=== PATIENT | female | born 1935 | race Caucasian/White ===

== ENCOUNTER 2017-06-18 09:59 | Emergency (ER) | payer MEDICARE, BC ==
--- NOTE | 2017-06-18 10:29 | Emergency Department Record ---
History of Present Illness - General Chief Complaint: Dizziness Stated Complaint: DIZZY Time Seen by Provider: 06/18/17 10:28 Source: Patient Mode of Arrival: Wheelchair Limitations: No limitations - History of Present Illness Initial Comments: The patient is here due to dizziness, weakness and mild dyspnea this AM. She woke up with it this AM. There is no hx of Cp, chest discomfort, palpitations or any recent illnesses. The patient does have a hx of chronic lung dz and was at [facility] for it yesterday. MD Complaint: Dizziness Onset/Timin -: Hour(s) Timing: Awoke with symptoms Description: Off-balance History of Same: No History of Trauma: No Severity: Moderate Improves With: Nothing Worsens With: Nothing Associated Symptoms: Shortness of breath, Weakness - Related Data Home Medications Medication Instructions Recorded Confirmed Last Taken Albuterol Sulfate [Ventolin Hfa] 1 puff IH DAILY 06/18/17 06/18/17 Unknown Allergies Allergy/AdvReac Type Severity Reaction Status Date / Time No Known Drug Allergies Allergy Verified 06/18/17 10:21 Travel Screening - Travel/Exposure Within Last 30 Days Have you traveled within the last 30 days?: No Review of Systems Constitutional: Denies: Chills, Fever Eyes: Denies: Eye discharge ENT: Denies: Congestion Respiratory: Reports: Cough (chronic.). Denies: Dyspnea Cardiovascular: Denies: Arrhythmia, Chest pain Endocrine: Reports: Fatigue Gastrointestinal: Denies: Abdominal pain Genitourinary: Denies: Dysuria Musculoskeletal: Denies: Arthralgia Past Medical History - SOCIAL HISTORY Smoking Status: Former smoker Alcohol Use: None Drug Use: None - RESPIRATORY Hx Respiratory Disorders: Yes Comment:: collapsed lung/brochial disease - CARDIOVASCULAR Hx Cardio Disorders: No - NEURO Hx Neuro Disorders: No - GI Hx GI Disorders: No - Hx Genitourinary Disorders: No - ENDOCRINE Hx Endocrine Disorders: No - MUSCULOSKELETAL Hx Musculoskeletal Disorders: No - PSYCH Hx Psych Problems: No - HEMATOLOGY/ONCOLOGY Hx Hematology/Oncology Disorders: No Family Medical History Any Significant Family History?: No Physical Exam - General General Appearance: Alert, Oriented x3, Cooperative, No acute distress - Head Head exam: Atraumatic, Normocephalic, Normal inspection - Eye Eye exam: Normal appearance, PERRL - Neck Neck exam: Normal inspection, Full ROM. negative: Tenderness - Respiratory Respiratory exam: Rhonchi (mildly.). negative: Normal lung sounds bilaterally - Cardiovascular Cardiovascular Exam: Irregular rhythm, Tachycardia. negative: Regular rate, Normal rhythm - GI/Abdominal GI/Abdominal exam: Soft, Normal bowel sounds. negative: Tenderness - Extremities Extremities exam: Normal inspection, Full ROM, Normal capillary refill. negative: Tenderness - Neurological Neurological exam: Alert. negative: Motor sensory deficit Course Vital Signs 06/18/17 06/18/17 10:11 10:24 Temperature 98.0 F Pulse Rate 170 H Respiratory 24 32 H Rate Blood Pressure 103/70 Pulse Ox 99 - Reevaluation(s) Reevaluation #1: The patient is very stable at this time with a HR of 160 in Afib. Due to her BP being low chronically we will give her some IVF and an amp of Calcium gluconate. We then will start the Cardizem. 06/18/17 10:45 Reevaluation #2: The patient is doing a lot better. Her BP is stable and HR 125 after the first Cardizem bolus. 06/18/17 11:08 Reevaluation #3: The patient is doing well at this time. Her BP is stable and her HR improving. I did discuss the case with Dr. Sam at [facility] [place] and he agrees with the transfer but would like her admitted to D-service. 06/18/17 11:45 Reevaluation #4: The patient is doing well at this time. I did discuss the case with Dr. Eastman at [facility] [place] and he does accept the patient in transfer. 06/18/17 11:55 Medical Decision Making - Data Complexity MDM Data: Labs Ordered and/or Reviewed, X-Ray Ordered and/or Reviewed, EKG Ordered and/or Reviewed - Lab Data Result diagrams: 06/18/17 10:25 06/18/17 10:25 - EKG Data -: EKG Interpreted by Me (Rapid Afib at 150's.) - Radiology Data Radiology results: Report reviewed (CXR: Extensive pulmonary fibrosis.) Critical Care Time Critical Care Time: Yes Total Critical Care Time: 30 Critical Care Time: 30 minutes Disposition Disposition: Transfer Clinical Impression: Rapid atrial fibrillation Disposition: Acute Care Hospital Transfer Transfer To: [facility] [place] Reason For Transfer: Cardiology Accepting Physician: Jaren Time Discussed w/Accepting Physician: 11:58 Condition: (2) Stable Forms: Patient Portal Access Time of Disposition: 11:58 Quality - Quality Measures Quality Measures: N/A - Blood Pressure Screening View Details: Yes Does Patient Have Any of the Following: No Blood Pressure Classification: Pre-Hypertensive BP Reading Systolic Measurement: 105 Diastolic Measurement: 87 Screening for High Blood Pressure: < Normal BP, F/U Not Required > [G8783]
[2017-06-18] MEDS ORDERED: CALCIUM GLUCONATE 1,000 MG in 0.9 % SODIUM CHLORIDE 100ML 100 ML IV ONE (10:33)
[2017-06-18] MEDS ORDERED: 0.9 % SODIUM CHLORIDE 1,000 ML BAG IV ONE (10:33)
[2017-06-18] MEDS ORDERED: DILTIAZEM 25MG/5ML VIAL IV ONE (10:36)
[2017-06-18 10:44] LABS: HEMATOCRIT 40.7 % (35.0-47.0); HEMOGLOBIN 12.7 gm/dl (11.6-16.0); MEAN CELL VOLUME 80.8 fl (81-97); MEAN CORPUSCULAR HEMOGLOBIN 25.2 pg (27-33); MEAN CORPUSCULAR HGB CONC 31.2 g/dl (32-36); MEAN PLATELET VOLUME 9.3 fl (7.4-10.4); PLATELET COUNT 480 K/uL (130-400); RED BLOOD COUNT 5.04 M/uL (3.80-5.40); RED CELL DISTRIBUTION WIDTH 15.9 % (11.5-14.5); WHITE BLOOD COUNT W/O DIFF 14.3 K/uL (4.2-12.2)
[2017-06-18 10:58] LABS: BLOOD UREA NITROGEN 18 mg/dL (8-23); CREATININE 0.9 mg/dL (0.5-0.9); EST GLOMERULAR FILTRATION RATE > 60 mL/min
[2017-06-18 11:00] LABS: INR 1.1; PARTIAL THROMBOPLASTIN TIME 27.1 SECONDS (24.5-39.1); PROTHROMBIN TIME (PATIENT) 12.1 SECONDS (9.5-12.1)
[2017-06-18 11:01] LABS: GLUCOSE,RANDOM 168 mg/dL (74-109)
[2017-06-18 11:03] LABS: CREATINE PHOSPHOKINASE 75 U/L (26-192)
[2017-06-18 11:07] LABS: CKMB 3.4 ng/mL (<3.77)
[2017-06-18 11:13] LABS: THYROID STIMULATING HORMONE 2.18 uIU/mL (0.270-4.20)
[2017-06-18] MEDS ORDERED: DILTIAZEM HCL 125 MG in 0.9 % SODIUM CHLORIDE 100ML 100 ML IV SCH (11:15)
[2017-06-18] MEDS ORDERED: HEPARIN SODIUM 1000 UNIT/1 ML 10ML VIAL IVP ONE (11:32)
[2017-06-18] MEDS ORDERED: HEPARIN SODIUM/D5W 25,000 UNITS/500 ML BAG IV SCH (11:45)
--- NOTE | 2017-06-19 12:15 | RADIOLOGY REPORT ---
EXAM: CHEST 1 VIEW HISTORY: DIFFICULTY BREATHING. TECHNIQUE: Portable frontal view of the chest. COMPARISON: 11/15/12 chest. FINDINGS: The heart size is normal. Atheromatous change of the thoracic aorta. Osteopenia. Extensive fibrotic changes bilaterally, which have progressed from the prior exam. Right apical pleural thickening, with a questionable area of cavitation. However, this is closely similar to the prior. No discrete pneumothorax. IMPRESSION: INTERVAL PROGRESSION OF FIBROTIC CHANGES BILATERALLY. STABLE RIGHT APICAL PLEURAL THICKENING/OPACITY. JOB NUMBER: [] MTDD
== END 2017-06-18 14:00 | disposition short-term general hospital (02) ==
LOC: ER 09:59
DX: I48.91 Unspecified atrial fibrillation (principal); R42 Dizziness and giddiness; R06.00 Dyspnea, unspecified; R53.1 Weakness; J84.10 Pulmonary fibrosis, unspecified; Z87.891 Personal history of nicotine dependence
CPT/HCPCS: 71045; 80048; 82550; 82553; 84443; 84484; 85027; 85610; 85730; 93005; 93010; 96365; 96366; 96368; 96375; 99291; J7030

== ENCOUNTER 2017-11-14 10:05 | Emergency (ER) | payer MEDICARE, BC ==
[2017-11-14] MEDS ORDERED: 0.9 % SODIUM CHLORIDE 1,000 ML BAG IV ONE (10:46)
--- NOTE | 2017-11-14 10:51 | Emergency Department Record ---
History of Present Illness - General Chief complaint: Dehydration Stated complaint: POSSIBLY DEHYDRATED Time Seen by Provider: 11/14/17 10:18 Source: Patient, RN notes reviewed Mode of Arrival: Ambulatory - History of Present Illness Initial comments: patient is feeling like she is dehydrated and weak and came in for evaluation and recently diagnosed with UTI by family Dr and on macrobid.( [address] Carmela Son at [facility]. 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 Home oxygen 2.5 at night and three moving around. 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 Onset/Timin -: Days(s) Improves with: None Worsens with: None Associated Symptoms: Dysuria - [place] Coma Scale Eye Response: (4) Open spontaneously Motor Response: (6) Obeys commands Verbal Response: (5) Oriented [place] Total: 15 - Related Data Home Medications Medication Instructions Recorded Confirmed Last Taken Apixaban [Eliquis] 2.5 mg PO BID 11/14/17 11/14/17 11/14/17 Calcium Carbonate [Calcium] 600 mg PO DAILY 11/14/17 11/14/17 11/14/17 Diltiazem HCl [Cardizem] 30 mg PO TID 11/14/17 11/14/17 11/14/17 Nitrofurantoin [place] [Macrobid] 100 mg PO BID 11/14/17 11/14/17 11/14/17 Vit A/C/E/Zinc/Selenium/Copper 1 each PO DAILY 11/14/17 11/14/17 11/14/17 [Vision Formula Tablet] Allergies Allergy/AdvReac Type Severity Reaction Status Date / Time levofloxacin [From Levaquin] Allergy HIVES Verified 11/14/17 10:27 Sulfa (Sulfonamide Allergy PT UNSURE Verified 11/14/17 10:27 Antibiotics) OF REACTION codeine AdvReac NAUSEA Verified 11/14/17 10:27 Travel Screening - Travel/Exposure Within Last 30 Days Have you traveled within the last 30 days?: No - Travel/Exposure Within Last Year Have you traveled outside the [place] in the last year?: No - Additonal Travel Details Have you been exposed to anyone with a communicable illness?: No Review of Systems Reviewed: No additional complaints except as noted below Constitutional: Reports: As per HPI. Denies: Chills, Fever, Malaise, Night sweats, Weakness, Weight change Eyes: Reports: As per HPI. Denies: Eye discharge, Eye pain, Photophobia, Vision change ENT: Reports: As per HPI. Denies: Congestion, Dental pain, Ear pain, Epistaxis , Hearing loss, Throat pain Respiratory: Reports: As per HPI. Denies: Cough, Dyspnea, Hemoptysis, Stridor, Wheezes Cardiovascular: Reports: As per HPI. Denies: Arrhythmia, Chest pain, Dyspnea on exertion, Edema, Murmurs, Orthopnea, Palpitations, Paroxysmal nocturnal dyspnea, Rheumatic Fever, Syncope Endocrine: Reports: As per HPI. Denies: Fatigue, Heat or cold intolerance, Polydipsia, Polyuria Gastrointestinal: Reports: As per HPI. Denies: Abdominal pain, Constipation, Diarrhea, Hematemesis, Hematochezia, Melena, Nausea, Vomiting Genitourinary: Reports: As per HPI, Dysuria, Frequency. Denies: Abnormal menses , Discharge, Dyspareunia, Hematuria, Incontinence, Retention, Urgency Musculoskeletal: Reports: As per HPI. Denies: Arthralgia, Back pain, Gout, Joint swelling, Myalgia, Neck pain Skin: Reports: As per HPI. Denies: Bruising, Change in color, Change in hair/ nails, Lesions, Pruritus, Rash Neurological: Reports: As per HPI. Denies: Abnormal gait, Confusion, Headache, Numbness, Paresthesias, Seizure, Tingling, Tremors, Vertigo, Weakness Psychiatric: Reports: As per HPI. Denies: Anxiety, Auditory hallucinations, Depression, Homicidal thoughts, Suicidal thoughts, Visual hallucinations Hematological/Lymphatic: Reports: As per HPI. Denies: Anemia, Blood Clots, Easy bleeding, Easy bruising, Swollen glands Past Medical History - SOCIAL HISTORY Smoking Status: Former smoker Alcohol Use: None Drug Use: None - RESPIRATORY Hx Respiratory Disorders: Yes Hx Pneumonia: Yes Comment:: collapsed lung/brochial disease - CARDIOVASCULAR Hx Cardio Disorders: Yes Hx Irregular Heartbeat: Yes - NEURO Hx Neuro Disorders: No - GI Hx GI Disorders: No - Hx Genitourinary Disorders: No - ENDOCRINE Hx Endocrine Disorders: No - MUSCULOSKELETAL Hx Musculoskeletal Disorders: No - PSYCH Hx Psych Problems: No - HEMATOLOGY/ONCOLOGY Hx Hematology/Oncology Disorders: No Family Medical History Any Significant Family History?: No Physical Exam - General General Appearance: Alert, Oriented x3, Cooperative, No acute distress - Head Head exam: Normal inspection - Eye Eye exam: Normal appearance, PERRL Pupils: Normal accommodation - ENT ENT exam: Normal exam, Mucous membranes moist, Normal external ear exam, Normal orophraynx, TM's normal bilaterally Ear exam: Normal external inspection. negative: External canal tenderness Nasal Exam: Normal inspection. negative: Discharge, Sinus tenderness Mouth exam: Normal external inspection, Tongue normal Teeth exam: Normal inspection. negative: Dental caries Throat exam: Normal inspection. negative: Tonsillar erythema, Tonsillar exudate - Neck Neck exam: Normal inspection, Full ROM. negative: Tenderness - Respiratory Respiratory exam: Normal lung sounds bilaterally. negative: Respiratory distress - Cardiovascular Cardiovascular Exam: Regular rate, Normal rhythm, Normal heart sounds - GI/Abdominal GI/Abdominal exam: Soft, Normal bowel sounds. negative: Tenderness - Rectal Rectal exam: Deferred - exam: Deferred - Extremities Extremities exam: Normal inspection, Full ROM, Normal capillary refill. negative: Tenderness - Back Back exam: Reports: Normal inspection, Full ROM. Denies: Muscle spasm, Rash noted, Tenderness - Neurological Neurological exam: Alert, Normal gait, Oriented X3, Reflexes normal - Psychiatric Psychiatric exam: Normal affect, Normal mood - Skin Skin exam: Dry, Intact, Normal color, Warm Course Vital Signs 11/14/17 10:12 Temperature 97.6 F Pulse Rate 86 Respiratory 16 Rate Blood Pressure 130/74 Pulse Ox 98 bladder scan after urination 145 ml left in the bladder Medical Decision Making - Lab Data Result diagrams: 11/14/17 10:43 11/14/17 10:43 Disposition Clinical Impression: Dysuria Disposition: Home, Self-Care Condition: (1) Good Instructions: Dysuria (ED) Additional Instructions: finish macrodantin follow up with and with frequency may need to see a urologist may need a scope Forms: Patient Portal Access Time of Disposition: 12:53 Quality - Quality Measures Quality Measures: N/A - Blood Pressure Screening Does Patient Have Any of the Following: No Blood Pressure Classification: Pre-Hypertensive BP Reading Systolic Measurement: 130 Diastolic Measurement: 74 Screening for High Blood Pressure: < Pre-Hypertensive BP, F/U Documented > [ G8950] Pre-Hypertensive Follow-up Interventions: Referral to alternative/primary care provider.
[2017-11-14 11:01] LABS: HEMATOCRIT 38.8 % (35.0-47.0); HEMOGLOBIN 11.8 gm/dl (11.6-16.0); MEAN CORPUSCULAR HEMOGLOBIN 24.9 pg (27-33); MEAN CORPUSCULAR HGB CONC 30.4 g/dl (32-36); MEAN PLATELET VOLUME 8.7 fl (7.4-10.4); PLATELET COUNT 323 K/uL (130-400); RED BLOOD COUNT 4.73 M/uL (3.80-5.40); RED CELL DISTRIBUTION WIDTH 15.2 % (11.5-14.5); WHITE BLOOD COUNT W/O DIFF 7.8 K/uL (4.2-12.2)
[2017-11-14 11:09] LABS: PLATELET ESTIMATE NORMAL (NORMAL)
[2017-11-14 11:10] LABS: BLOOD UREA NITROGEN 14 mg/dL (8-23); CREATININE 0.7 mg/dL (0.5-0.9); EST GLOMERULAR FILTRATION RATE > 60 mL/min
[2017-11-14 11:13] LABS: GLUCOSE,RANDOM 91 mg/dL (74-109)
[2017-11-14 11:16] LABS: ALBUMIN 3.7 g/dL (4.0-5.0); ALKALINE PHOSPHATASE 86 U/L (35-104); ALT/SGPT 17 U/L (<33); AST/SGOT 23 U/L (10.0-35.0); BILIRUBIN,DIRECT < 0.2 mg/dL (0-0.3)
[2017-11-14 11:30] LABS: URINE APPEARANCE CLEAR; URINE BILIRUBIN NEGATIVE (NEGATIVE); URINE BLOOD NEGATIVE (NEGATIVE); URINE COLOR YELLOW; URINE GLUCOSE (UA) NEGATIVE (NEGATIVE); URINE KETONE NEGATIVE (NEGATIVE); URINE LEUKOCYTE ESTERASE NEGATIVE (NEGATIVE); URINE NITRITE NEGATIVE (NEGATIVE); URINE PROTEIN NEGATIVE (NEGATIVE); URINE UROBILINOGEN 0.2 E.U./dL (0.20 - 1.00)
== END 2017-11-14 13:00 | disposition home or self-care (01) ==
LOC: ER 10:05
DX: R30.0 Dysuria (principal); R53.1 Weakness; J98.09 Other diseases of bronchus, not elsewhere classified; Z99.81 Dependence on supplemental oxygen; Z87.891 Personal history of nicotine dependence
CPT/HCPCS: 80048; 80076; 81003; 85027; 99284; J7030

== ENCOUNTER 2018-01-19 08:27 | Emergency (ER) | payer MEDICARE, BC ==
[2018-01-19] MEDS ORDERED: 0.9 % SODIUM CHLORIDE 1,000 ML BAG IV ONE (08:57)
[2018-01-19 09:17] LABS: BASO % 0.1 % (0-6); EOS % 1.8 % (0-6); GRAN % 74.3 % (47-80); HEMATOCRIT 39.2 % (35.0-47.0); HEMOGLOBIN 12.2 gm/dl (11.6-16.0); LYMPH % 14.3 % (16-45); MEAN CELL VOLUME 81.3 fl (81-97); MEAN CORPUSCULAR HEMOGLOBIN 25.3 pg (27-33); MEAN CORPUSCULAR HGB CONC 31.1 g/dl (32-36); MEAN PLATELET VOLUME 9.6 fl (7.4-10.4); MONO % 9.5 % (0-9); PLATELET COUNT 305 K/uL (130-400); RED BLOOD COUNT 4.82 M/uL (3.80-5.40); RED CELL DISTRIBUTION WIDTH 14.8 % (11.5-14.5); WHITE BLOOD COUNT W/O DIFF 6.7 K/uL (4.2-12.2)
--- NOTE | 2018-01-19 09:18 | Emergency Department Record ---
History of Present Illness - General Chief Complaint: Dizziness Stated Complaint: DIZZY Time Seen by Provider: 01/19/18 08:39 Source: Patient, RN notes reviewed Mode of Arrival: Wheelchair - History of Present Illness Initial Comments: patient states she is dehydrated and also lightheaded and she thinks it is the medication flomax she is taking with urology Dr. Rodriguez ( urinary retention and she has atrial fibrillation and on eliquis. 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 uses home oxygen and sets it at 3 liters per minute for [address] Carmela [place]. Patient denies chest pain and uses a nebulizer twice a day(albuterol nebs twice a day) Onset/Timin -: Days(s) Timing: Gradual onset Description: Difficulty walking, Lightheadedness History of Same: Yes History of Trauma: No Severity: Moderate - [place] Coma Scale Eye Response: (4) Open spontaneously Motor Response: (6) Obeys commands Verbal Response: (5) Oriented [place] Total: 15 - Related Data Allergies Allergy/AdvReac Type Severity Reaction Status Date / Time levofloxacin [From Levaquin] Allergy HIVES Verified 01/19/18 08:39 Sulfa (Sulfonamide Allergy PT UNSURE Verified 01/19/18 08:39 Antibiotics) OF REACTION codeine AdvReac NAUSEA Verified 01/19/18 08:39 Travel Screening - Travel/Exposure Within Last 30 Days Have you traveled within the last 30 days?: No - Travel/Exposure Within Last Year Have you traveled outside the [place] in the last year?: No - Additonal Travel Details Have you been exposed to anyone with a communicable illness?: No - Travel Symptoms Symptom Screening: None Review of Systems Reviewed: No additional complaints except as noted below Constitutional: Reports: As per HPI. Denies: Chills, Fever, Malaise, Night sweats, Weakness, Weight change Eyes: Reports: As per HPI. Denies: Eye discharge, Eye pain, Photophobia, Vision change ENT: Reports: As per HPI. Denies: Congestion, Dental pain, Ear pain, Epistaxis , Hearing loss, Throat pain Respiratory: Reports: As per HPI. Denies: Cough, Dyspnea, Hemoptysis, Stridor, Wheezes Cardiovascular: Reports: As per HPI. Denies: Arrhythmia, Chest pain, Dyspnea on exertion, Edema, Murmurs, Orthopnea, Palpitations, Paroxysmal nocturnal dyspnea, Rheumatic Fever, Syncope Endocrine: Reports: As per HPI. Denies: Fatigue, Heat or cold intolerance, Polydipsia, Polyuria Gastrointestinal: Reports: As per HPI. Denies: Abdominal pain, Constipation, Diarrhea, Hematemesis, Hematochezia, Melena, Nausea, Vomiting Genitourinary: Reports: As per HPI. Denies: Abnormal menses, Discharge, Dyspareunia, Dysuria, Frequency, Hematuria, Incontinence, Retention, Urgency Musculoskeletal: Reports: As per HPI. Denies: Arthralgia, Back pain, Gout, Joint swelling, Myalgia, Neck pain Skin: Reports: As per HPI. Denies: Bruising, Change in color, Change in hair/ nails, Lesions, Pruritus, Rash Neurological: Reports: As per HPI. Denies: Abnormal gait, Confusion, Headache, Numbness, Paresthesias, Seizure, Tingling, Tremors, Vertigo, Weakness Psychiatric: Reports: As per HPI. Denies: Anxiety, Auditory hallucinations, Depression, Homicidal thoughts, Suicidal thoughts, Visual hallucinations Hematological/Lymphatic: Reports: As per HPI. Denies: Anemia, Blood Clots, Easy bleeding, Easy bruising, Swollen glands Past Medical History - SOCIAL HISTORY Smoking Status: Former smoker Alcohol Use: None Drug Use: None - RESPIRATORY Hx Respiratory Disorders: Yes Hx Pneumonia: Yes Comment:: collapsed lung/brochial disease/home O2 most of the time - CARDIOVASCULAR Hx Cardio Disorders: Yes Hx Irregular Heartbeat: Yes - NEURO Hx Neuro Disorders: No - GI Hx GI Disorders: No - Hx Genitourinary Disorders: No - ENDOCRINE Hx Endocrine Disorders: No - MUSCULOSKELETAL Hx Musculoskeletal Disorders: No - PSYCH Hx Psych Problems: No - HEMATOLOGY/ONCOLOGY Hx Hematology/Oncology Disorders: No Family Medical History Any Significant Family History?: Yes Physical Exam - General General Appearance: Alert, Oriented x3, Cooperative, No acute distress, Mild distress - Head Head exam: Normal inspection - Eye Eye exam: Normal appearance, PERRL Pupils: Normal accommodation - ENT ENT exam: Normal exam, Mucous membranes moist, Normal external ear exam, Normal orophraynx, TM's normal bilaterally Ear exam: Normal external inspection. negative: External canal tenderness Nasal Exam: Normal inspection. negative: Discharge, Sinus tenderness Mouth exam: Normal external inspection, Tongue normal Teeth exam: Normal inspection. negative: Dental caries Throat exam: Normal inspection. negative: Tonsillar erythema, Tonsillar exudate - Neck Neck exam: Normal inspection, Full ROM. negative: Tenderness - Respiratory Respiratory exam: Normal lung sounds bilaterally. negative: Respiratory distress - Cardiovascular Cardiovascular Exam: Regular rate, Normal rhythm, Normal heart sounds - GI/Abdominal GI/Abdominal exam: Soft, Normal bowel sounds. negative: Tenderness - Rectal Rectal exam: Deferred - exam: Deferred - Extremities Extremities exam: Normal inspection, Full ROM, Normal capillary refill. negative: Tenderness - Back Back exam: Reports: Normal inspection, Full ROM. Denies: Muscle spasm, Rash noted, Tenderness - Neurological Neurological exam: Alert, Normal gait, Oriented X3, Reflexes normal - Psychiatric Psychiatric exam: Normal affect, Normal mood - Skin Skin exam: Dry, Intact, Normal color, Warm Course Vital Signs 01/19/18 08:30 Temperature 97.5 F L Pulse Rate 84 Respiratory 22 Rate Blood Pressure 113/67 Pulse Ox 99 - Reevaluation(s) Reevaluation #1: Patient offerred chest xray and she refused it because [facility] is doing a CT of chest next week and she doesn't want to double up on the xrays. Discussed risks of not doing the xray with patient and son and she said her breathing is at baseline. 01/19/18 09:21 Reevaluation #2: patient is feeling better 01/19/18 11:01 Medical Decision Making - Lab Data Result diagrams: 01/19/18 08:49 01/19/18 08:49 Disposition Clinical Impression: Dehydration Disposition: Home, Self-Care Condition: (1) Good Instructions: Dehydration (ED) Additional Instructions: follow up with family Dr next week stop flomax Forms: Patient Portal Access Time of Disposition: 11:02 Quality - Quality Measures Quality Measures: N/A - Blood Pressure Screening Does Patient Have Any of the Following: No Blood Pressure Classification: Normal BP Reading Systolic Measurement: 113 Diastolic Measurement: 67 Screening for High Blood Pressure: < Normal BP, F/U Not Required > [G8783]
[2018-01-19 09:26] LABS: BLOOD UREA NITROGEN 16 mg/dL (8-23); CREATININE 0.7 mg/dL (0.5-0.9); EST GLOMERULAR FILTRATION RATE > 60 mL/min
[2018-01-19 09:29] LABS: GLUCOSE,RANDOM 139 mg/dL (74-109)
[2018-01-19 09:32] LABS: LIPASE 43 U/L (13-60)
[2018-01-19 11:31] LABS: URINE APPEARANCE CLEAR; URINE BILIRUBIN NEGATIVE (NEGATIVE); URINE BLOOD NEGATIVE (NEGATIVE); URINE COLOR YELLOW; URINE GLUCOSE (UA) NEGATIVE (NEGATIVE); URINE KETONE NEGATIVE (NEGATIVE); URINE LEUKOCYTE ESTERASE NEGATIVE (NEGATIVE); URINE NITRITE NEGATIVE (NEGATIVE); URINE PROTEIN NEGATIVE (NEGATIVE); URINE UROBILINOGEN 0.2 E.U./dL (0.20 - 1.00)
== END 2018-01-19 12:25 | disposition home or self-care (01) ==
LOC: ER 08:27
DX: E86.0 Dehydration (principal); R42 Dizziness and giddiness; R26.2 Difficulty in walking, not elsewhere classified; I48.91 Unspecified atrial fibrillation; Z79.01 Long term (current) use of anticoagulants; F17.210 Nicotine dependence, cigarettes, uncomplicated
CPT/HCPCS: 80048; 81003; 83690; 85025; 93005; 93010; 96360; 96361; 99284; J7030

== ENCOUNTER 2018-02-03 09:46 | Emergency (ER) | payer MEDICARE, BC ==
[2018-02-03] MEDS ORDERED: IPRATROPIUM/ALBUTEROL (0.5MG/3MG) NEB INH ONE (10:01)
[2018-02-03] MEDS ORDERED: METHYLPREDNISOLONE PF 125MG/VIAL IVP ONE (10:01)
--- NOTE | 2018-02-03 10:10 | Emergency Department Record ---
History of Present Illness - General Chief Complaint: Shortness of breath Stated Complaint: ALEX Time Seen by Provider: 02/03/18 09:54 Source: Patient Mode of Arrival: Wheelchair Limitations: No limitations - History of Present Illness Initial Comments: The patient is here due to worsening of her chronic SOB. She has a hx of chronic lung dz and is on 3 L O2 at home. She does see a lung specialist at [facility] and did have a chest CT a week ago. Now for the last 2 days she has had increasing SOB. There is no reported CP, fever, chills, sputum production, leg swelling or ST. She has had a mild increase in her chronic cough. MD Complaint: Shortness of breath Onset/Timin -: Days(s) Improves With: Nothing Worsens With: Nothing Associated Symptoms: Cough Treatments Prior to Arrival: Oxygen - Related Data Home Oxygen Therapy: Yes Home Oxygen Amount: 3 Liters Home Medications Medication Instructions Recorded Confirmed Last Taken Ipratropium/Albuterol [Duoneb] 3 ml INH BID 02/03/18 02/03/18 02/03/18 Minocycline HCl 100 mg PO BID 02/03/18 02/03/18 Unknown Previous Rx's Medication Instructions Recorded Amoxicillin/Potassium Clav 1 tab PO BID #14 tab 02/03/18 [Augmentin 875-125 Tablet] Prednisone [Prednisone 20Mg] 40 mg PO DAILY #8 tab 02/03/18 Allergies Allergy/AdvReac Type Severity Reaction Status Date / Time levofloxacin [From Levaquin] Allergy HIVES Verified 02/03/18 09:54 Sulfa (Sulfonamide Allergy PT UNSURE Verified 02/03/18 09:54 Antibiotics) OF REACTION codeine AdvReac NAUSEA Verified 02/03/18 09:54 tamsulosin [From Flomax] AdvReac DIZZINESS Verified 02/03/18 09:54 Travel Screening - Travel/Exposure Within Last 30 Days Have you traveled within the last 30 days?: No Review of Systems Constitutional: Denies: Chills, Fever Eyes: Denies: Eye discharge ENT: Denies: Congestion Respiratory: Reports: Cough, Dyspnea. Denies: Hemoptysis, Stridor, Wheezes Cardiovascular: Denies: Arrhythmia, Chest pain Endocrine: Reports: Fatigue Gastrointestinal: Denies: Abdominal pain Genitourinary: Denies: Dysuria Musculoskeletal: Denies: Arthralgia Skin: Denies: Bruising Past Medical History - SOCIAL HISTORY Smoking Status: Former smoker Alcohol Use: None Drug Use: None - RESPIRATORY Hx Respiratory Disorders: Yes Hx Pneumonia: Yes Comment:: collapsed lung/brochial disease/home O2 most of the time - CARDIOVASCULAR Hx Cardio Disorders: Yes Hx Irregular Heartbeat: Yes - NEURO Hx Neuro Disorders: No - GI Hx GI Disorders: No - Hx Genitourinary Disorders: No - ENDOCRINE Hx Endocrine Disorders: No - MUSCULOSKELETAL Hx Musculoskeletal Disorders: No - PSYCH Hx Psych Problems: No - HEMATOLOGY/ONCOLOGY Hx Hematology/Oncology Disorders: No Family Medical History Any Significant Family History?: No Physical Exam - General General Appearance: Alert, Oriented x3, Cooperative, No acute distress - Head Head exam: Atraumatic, Normocephalic, Normal inspection - Eye Eye exam: Normal appearance, PERRL - ENT Throat exam: Normal inspection. negative: Tonsillar erythema, Tonsillar exudate - Neck Neck exam: Normal inspection, Full ROM. negative: Tenderness - Respiratory Respiratory exam: Rhonchi (bilaterally. ). negative: Normal lung sounds bilaterally, Accessory muscle use, Decreased breath sounds, Prolonged expiratory , Respiratory distress (The patient is speaking in full sentences with no difficulty.) - Cardiovascular Cardiovascular Exam: Regular rate, Normal rhythm, Normal heart sounds. negative : Diastolic murmur, Gallop, Systolic murmur - GI/Abdominal GI/Abdominal exam: Soft, Normal bowel sounds. negative: Tenderness - Extremities Extremities exam: Normal inspection, Full ROM, Normal capillary refill. negative: Calf tenderness, Pedal edema, Tenderness - Neurological Neurological exam: Alert, Normal gait. negative: Abnormal gait, Motor sensory deficit - Psychiatric Psychiatric exam: negative: Anxious Course Vital Signs 02/03/18 09:46 Temperature 98.3 F Pulse Rate 100 H Respiratory 30 H Rate Blood Pressure 94/60 Pulse Ox 95 - Reevaluation(s) Reevaluation #1: The patient is doing better and feels like her breathing is back to normal. She denies any pain or SOB and is now very hungry. 02/03/18 11:40 Reevaluation #2: The patient is doing very well at this time. She is eating and drinking normally with no pain or SOB. She feels ready for home. 02/03/18 11:57 Medical Decision Making - Data Complexity MDM Data: Labs Ordered and/or Reviewed, X-Ray Ordered and/or Reviewed, EKG Ordered and/or Reviewed - Lab Data Result diagrams: 02/03/18 09:55 02/03/18 09:55 - EKG Data -: EKG Interpreted by Me EKG: No Acute Changes (Neg for ischemia.) - Radiology Data Radiology results: Report reviewed (CXR: Severe Pulm fibrosis.) Disposition Disposition: Discharge Clinical Impression: Pulmonary fibrosis, unspecified Disposition: Home, Self-Care Condition: (2) Stable Instructions: Dyspnea (ED) Additional Instructions: Please continue your regular medicines and add the Prednisone and Augmentin as directed. Please see your doctor next week if not better and return to the ER for any worsening symptoms. Prescriptions: Amoxicillin/Potassium Clav [Augmentin 875-125 Tablet] 1 tab PO BID #14 tab Prednisone [Prednisone 20Mg] 40 mg PO DAILY #8 tab Forms: Patient Portal Access Time of Disposition: 12:00 Quality - Quality Measures Quality Measures: N/A - Blood Pressure Screening View Details: Yes Does Patient Have Any of the Following: No Blood Pressure Classification: Normal BP Reading Systolic Measurement: 102 Diastolic Measurement: 58 Screening for High Blood Pressure: < Normal BP, F/U Not Required > [G8783]
[2018-02-03 10:11] LABS: HEMATOCRIT 37.4 % (35.0-47.0); HEMOGLOBIN 11.7 gm/dl (11.6-16.0); MEAN CELL VOLUME 80.4 fl (81-97); MEAN CORPUSCULAR HEMOGLOBIN 25.2 pg (27-33); MEAN CORPUSCULAR HGB CONC 31.3 g/dl (32-36); MEAN PLATELET VOLUME 9.2 fl (7.4-10.4); PLATELET COUNT 347 K/uL (130-400); RED BLOOD COUNT 4.65 M/uL (3.80-5.40); RED CELL DISTRIBUTION WIDTH 14.7 % (11.5-14.5); WHITE BLOOD COUNT W/O DIFF 12.7 K/uL (4.2-12.2)
[2018-02-03 10:19] LABS: PLATELET ESTIMATE NORMAL (NORMAL)
[2018-02-03 10:21] LABS: BLOOD UREA NITROGEN 19 mg/dL (8-23); CREATININE 0.7 mg/dL (0.5-0.9); EST GLOMERULAR FILTRATION RATE > 60 mL/min
[2018-02-03 10:22] LABS: TOTAL PROTEIN 7.8 g/dL (6.6-8.7)
[2018-02-03 10:24] LABS: GLUCOSE,RANDOM 115 mg/dL (74-109); INR 1.2; PARTIAL THROMBOPLASTIN TIME 34.5 SECONDS (24.5-39.1); PROTHROMBIN TIME (PATIENT) 12.3 SECONDS (9.5-12.1)
[2018-02-03 10:26] LABS: ALT/SGPT 9 U/L (<33); AST/SGOT 16 U/L (10.0-35.0)
[2018-02-03 10:27] LABS: ALB/GLOB RATIO 0.9 (1.1-1.8); ALBUMIN 3.6 g/dL (4.0-5.0); ALKALINE PHOSPHATASE 93 U/L (35-104); CREATINE PHOSPHOKINASE 56 U/L (26-192)
[2018-02-03 10:29] LABS: CKMB 2.3 ng/mL (<3.77)
--- NOTE | 2018-02-04 10:46 | RADIOLOGY REPORT ---
EXAM: CHEST, TWO VIEWS HISTORY: DIFFICULTY IN BREATHING. TECHNIQUE: Frontal and lateral views of the chest were performed. Comparison: 06/18/17. FINDINGS: There is severe underlying fibrosis. There is biapical pleural thickening, right side greater than left. No definitive superimposed infiltrate or pleural effusion. The heart size is normal. There is deviation of the trachea. IMPRESSION: SEVERE UNDERLYING PULMONARY FIBROSIS. BIAPICAL PLEURAL THICKENING, RIGHT SIDE GREATER THAN LEFT. NO DEFINITE SUPERIMPOSED INFILTRATE OR PLEURAL EFFUSION. JOB NUMBER: [id number] [facility]
== END 2018-02-03 12:25 | disposition home or self-care (01) ==
LOC: ER 09:46
DX: J84.10 Pulmonary fibrosis, unspecified (principal); R06.02 Shortness of breath; R05 Cough; Z99.81 Dependence on supplemental oxygen; Z87.891 Personal history of nicotine dependence
CPT/HCPCS: 71046; 80053; 82550; 82553; 83880; 84484; 85027; 85610; 85730; 86140; 93005; 93010; 94640; 96374; 99284; J2930

== ENCOUNTER 2018-02-12 09:29 | Emergency (ER) | payer MEDICARE, BC ==
--- NOTE | 2018-02-12 10:00 | Emergency Department Record ---
History of Present Illness - General Chief Complaint: Shortness of breath Stated Complaint: ALEX Time Seen by Provider: 02/12/18 09:53 Mode of Arrival: Wheelchair - History of Present Illness Initial Comments: Patient has body aches and short of breath and she has pulmonary fibrosis and on home oxygen 3 liters per minute and she has COPD. She see Harvinder Kumari pulmonary Dr and yesterday she called her pulmonary Dr and was started on [id number] mg daily for 30 days and ethambucol twice a day for 30 days and she has an appointment to see them in March. patient denies chest pain mostly her legs hurt and she has body aches Onset/Timin -: Days(s) Severity: Moderate Severity scale (1-10): 10 Quality: Aching Consistency: Constant Improves With: Nothing Worsens With: Nothing Associated Symptoms: Denies other symptoms Treatments Prior to Arrival: Other Treatment Prior to Arrival Comment:: 2 new antibioitics - Related Data Home Oxygen Therapy: Yes Home Oxygen Amount: 3 Liters Home Medications Medication Instructions Recorded Confirmed Last Taken Azithromycin 1 tab PO DAILY 02/12/18 02/12/18 Unknown Ethambutol HCl 1 tab PO DAILY 02/12/18 02/12/18 Unknown Previous Rx's Medication Instructions Recorded Prednisone [Prednisone 20Mg] 40 mg PO DAILY #8 tab 02/03/18 Allergies Allergy/AdvReac Type Severity Reaction Status Date / Time levofloxacin [From Levaquin] Allergy HIVES Verified 02/03/18 09:54 Sulfa (Sulfonamide Allergy PT UNSURE Verified 02/03/18 09:54 Antibiotics) OF REACTION codeine AdvReac NAUSEA Verified 02/03/18 09:54 tamsulosin [From Flomax] AdvReac DIZZINESS Verified 02/03/18 09:54 Travel Screening - Travel/Exposure Within Last 30 Days Have you traveled within the last 30 days?: No - Travel/Exposure Within Last Year Have you traveled outside the [place] in the last year?: No - Additonal Travel Details Have you been exposed to anyone with a communicable illness?: No - Travel Symptoms Symptom Screening: None Review of Systems Reviewed: No additional complaints except as noted below Constitutional: Reports: As per HPI. Denies: Chills, Fever, Malaise, Night sweats, Weakness, Weight change Eyes: Reports: As per HPI. Denies: Eye discharge, Eye pain, Photophobia, Vision change ENT: Reports: As per HPI. Denies: Congestion, Dental pain, Ear pain, Epistaxis , Hearing loss, Throat pain Respiratory: Reports: As per HPI. Denies: Cough, Dyspnea, Hemoptysis, Stridor, Wheezes Cardiovascular: Reports: As per HPI. Denies: Arrhythmia, Chest pain, Dyspnea on exertion, Edema, Murmurs, Orthopnea, Palpitations, Paroxysmal nocturnal dyspnea, Rheumatic Fever, Syncope Endocrine: Reports: As per HPI. Denies: Fatigue, Heat or cold intolerance, Polydipsia, Polyuria Gastrointestinal: Reports: As per HPI. Denies: Abdominal pain, Constipation, Diarrhea, Hematemesis, Hematochezia, Melena, Nausea, Vomiting Genitourinary: Reports: As per HPI. Denies: Abnormal menses, Discharge, Dyspareunia, Dysuria, Frequency, Hematuria, Incontinence, Retention, Urgency Musculoskeletal: Reports: As per HPI. Denies: Arthralgia, Back pain, Gout, Joint swelling, Myalgia, Neck pain Skin: Reports: As per HPI. Denies: Bruising, Change in color, Change in hair/ nails, Lesions, Pruritus, Rash Neurological: Reports: As per HPI. Denies: Abnormal gait, Confusion, Headache, Numbness, Paresthesias, Seizure, Tingling, Tremors, Vertigo, Weakness Psychiatric: Reports: As per HPI. Denies: Anxiety, Auditory hallucinations, Depression, Homicidal thoughts, Suicidal thoughts, Visual hallucinations Hematological/Lymphatic: Reports: As per HPI. Denies: Anemia, Blood Clots, Easy bleeding, Easy bruising, Swollen glands Past Medical History - SOCIAL HISTORY Smoking Status: Former smoker Alcohol Use: None Drug Use: None - RESPIRATORY Hx Respiratory Disorders: Yes Hx Pneumonia: Yes Comment:: collapsed lung/brochial disease/home O2 most of the time - CARDIOVASCULAR Hx Cardio Disorders: Yes Hx Irregular Heartbeat: Yes - NEURO Hx Neuro Disorders: No - GI Hx GI Disorders: No - Hx Genitourinary Disorders: No - ENDOCRINE Hx Endocrine Disorders: No - MUSCULOSKELETAL Hx Musculoskeletal Disorders: No - PSYCH Hx Psych Problems: No - HEMATOLOGY/ONCOLOGY Hx Hematology/Oncology Disorders: No Family Medical History Any Significant Family History?: No Physical Exam - General General Appearance: Alert, Oriented x3, Cooperative, No acute distress - Head Head exam: Normal inspection - Eye Eye exam: Normal appearance, PERRL Pupils: Normal accommodation - ENT ENT exam: Normal exam, Mucous membranes moist, Normal external ear exam, Normal orophraynx, TM's normal bilaterally Ear exam: Normal external inspection. negative: External canal tenderness Nasal Exam: Normal inspection. negative: Discharge, Sinus tenderness Mouth exam: Normal external inspection, Tongue normal Teeth exam: Normal inspection. negative: Dental caries Throat exam: Normal inspection. negative: Tonsillar erythema, Tonsillar exudate - Neck Neck exam: Normal inspection, Full ROM. negative: Tenderness - Respiratory Respiratory exam: Normal lung sounds bilaterally. negative: Respiratory distress - Cardiovascular Cardiovascular Exam: Regular rate, Normal rhythm, Normal heart sounds - GI/Abdominal GI/Abdominal exam: Soft, Normal bowel sounds. negative: Tenderness - Rectal Rectal exam: Deferred - exam: Deferred - Extremities Extremities exam: Normal inspection, Full ROM, Normal capillary refill. negative: Tenderness - Back Back exam: Reports: Normal inspection, Full ROM. Denies: Muscle spasm, Rash noted, Tenderness - Neurological Neurological exam: Alert, Normal gait, Oriented X3, Reflexes normal - Psychiatric Psychiatric exam: Normal affect, Normal mood - Skin Skin exam: Dry, Intact, Normal color, Warm Course Vital Signs 02/12/18 09:41 Temperature 98.0 F Pulse Rate 88 Respiratory 28 H Rate Blood Pressure 92/55 Pulse Ox 99 - Reevaluation(s) Reevaluation #1: patient is breathing better and at her baseline. she is also moving her legs better 02/12/18 11:29 Medical Decision Making - Data Complexity MDM Data: Labs Ordered and/or Reviewed (trop T negative, sodium 132), X-Ray Ordered and/or Reviewed (pulmonary fibrosis) - Lab Data Result diagrams: 02/12/18 09:40 02/12/18 09:40 Disposition Clinical Impression: Pulmonary fibrosis, Myalgia COPD (chronic obstructive pulmonary disease) Qualifiers: COPD type: COPD with acute exacerbation Qualified Code(s): J44.1 - Chronic obstructive pulmonary disease with (acute) exacerbation Disposition: Home, Self-Care Condition: (1) Good Additional Instructions: followup primary Dr in 4 days and if worse call your pulmonary Dr or return to ED Forms: Patient Portal Access Time of Disposition: 11:35 Quality - Quality Measures Quality Measures: N/A - Blood Pressure Screening Does Patient Have Any of the Following: No Blood Pressure Classification: Normal BP Reading Systolic Measurement: 92 Diastolic Measurement: 55 Screening for High Blood Pressure: < Normal BP, F/U Not Required > [G8787]
[2018-02-12] MEDS: IPRATROPIUM/ALBUTEROL (0.5MG/3MG) NEB INH ONE (10:10)
[2018-02-12 10:13] LABS: HEMATOCRIT 38.4 % (35.0-47.0); MEAN CELL VOLUME 79.8 fl (81-97); MEAN CORPUSCULAR HEMOGLOBIN 24.9 pg (27-33); MEAN CORPUSCULAR HGB CONC 31.3 g/dl (32-36); MEAN PLATELET VOLUME 9.1 fl (7.4-10.4); PLATELET COUNT 347 K/uL (130-400); RED BLOOD COUNT 4.81 M/uL (3.80-5.40); RED CELL DISTRIBUTION WIDTH 15.1 % (11.5-14.5); WHITE BLOOD COUNT W/O DIFF 12.7 K/uL (4.2-12.2)
[2018-02-12 10:22] LABS: PLATELET ESTIMATE NORMAL (NORMAL)
[2018-02-12 10:27] LABS: BLOOD UREA NITROGEN 13 mg/dL (8-23); CREATININE 0.7 mg/dL (0.5-0.9); EST GLOMERULAR FILTRATION RATE > 60 mL/min
[2018-02-12 10:30] LABS: GLUCOSE,RANDOM 139 mg/dL (74-109)
[2018-02-12] MEDS: METHYLPREDNISOLONE SOD 40MG/VIAL IVP ONE (10:30)
[2018-02-12] MEDS: 0.9 % SODIUM CHLORIDE 1000ML 1,000 ML IV PRN (10:31)
[2018-02-12 10:37] LABS: INFLUENZA A NEGATIVE (NEGATIVE); INFLUENZA B NEGATIVE (NEGATIVE)
[2018-02-12 11:41] LABS: ALKALINE PHOSPHATASE 110 U/L (35-104); ALT/SGPT 17 U/L (<33); AST/SGOT 19 U/L (10.0-35.0)
[2018-02-12 11:42] LABS: BILIRUBIN,DIRECT < 0.2 mg/dL (0-0.3)
[2018-02-12] MEDS: ACETAMINOPHEN 325 MG TAB PO ONE (11:54)
--- NOTE | 2018-02-14 09:51 | RADIOLOGY REPORT ---
EXAM: CHEST, TWO VIEWS HISTORY: SHORTNESS OF BREATH, COUGH, COPD AND PULMONARY FIBROSIS. TECHNIQUE: AP and lateral views of the chest were obtained. Comparison: 02/03/18. FINDINGS: The cardiomediastinal silhouette is normal in size. Severe and diffuse reticular opacities are redemonstrated throughout both lungs with volume loss greatest in the upper lobes. The appearance is similar to prior examination. No new focal consolidation is identified. No pleural effusion or pneumothorax is seen. IMPRESSION: PULMONARY FIBROSIS AND UPPER LOBE VOLUME LOSS SIMILAR TO PRIOR EXAM. NO DEFINITE EVIDENCE FOR SUPERIMPOSED PNEUMONIA OR PULMONARY EDEMA. JOB NUMBER: [id number] [facility]
== END 2018-02-12 11:54 | disposition home or self-care (01) ==
LOC: ER 09:29
DX: J44.1 Chronic obstructive pulmonary disease with (acute) exacerbation (principal); J84.10 Pulmonary fibrosis, unspecified; M79.10 Myalgia, unspecified site; Z99.81 Dependence on supplemental oxygen; Z87.891 Personal history of nicotine dependence
CPT/HCPCS: 71046; 80048; 80076; 84484; 85027; 85730; 87400; 93005; 93010; 94640; 96374; 99284; J2920

== ENCOUNTER 2018-02-15 02:52 | Emergency (ER) | payer MEDICARE, BC ==
[2018-02-15] MEDS ORDERED: SODIUM CHLORIDE 0.9% 500 ML IV ONE (03:14)
--- NOTE | 2018-02-15 03:14 | Emergency Department Record ---
History of Present Illness - General Chief complaint: Weakness Stated complaint: LOW BP Time Seen by Provider: 02/15/18 03:01 Source: Patient, Family Mode of Arrival: Ambulatory Limitations: No limitations - History of Present Illness Initial comments: 82 yo female presents with generalized weakness for many months/years. She presents this morning with a concern about her blood pressure. She took her blood pressure at home and it was 78 systolic. She was seen by her smt machine operator yesterday and her blood pressure was [address] Alba decreased her Diltiazem yesterday to BID from TID. She states her normal blood pressure is in the 90's. She has atrial fibrillation. She also has chronic shortness of breath, COPD, on home oxygen of 3 liters. She has a chronic unchanged cough. She is followed at [facility] by pulmonary and ID. 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 She is on Eliquis for atrial fibrillation. She is a former smoker. She saw her [facility] ID 01/27 as well. 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 Her ID specialist restarted a course of antibiotics at that time given her chronic continued fatigue, cough. Last positive cultures noted on the ID note were in November of 2016. She states she believes she will be on antibiotics indefinitely go forward. Her weight she states has been steady near 90 pounds. 01/27/18 vitals at [facility]: BP was 99/50 at [facility] HR 100 Temp 97.4 wt 93 pounds Complaint: Generalized weakness -: Year(s) (4) Location: Generalized Severity: Moderate Consistency: Other Improves with: None Worsens with: Exertion Context: Other (Chronic illness) Associated Symptoms: Other - Dwayne Coma Scale Eye Response: (4) Open spontaneously Motor Response: (6) Obeys commands Verbal Response: (5) Oriented Dwayne Total: 15 - Related Data Home Medications Medication Instructions Recorded Confirmed Last Taken Rosuvastatin Calcium [Crestor] 10 mg PO DAILY 02/15/18 02/15/18 02/14/18 Allergies Allergy/AdvReac Type Severity Reaction Status Date / Time levofloxacin [From Levaquin] Allergy HIVES Verified 02/03/18 09:54 Sulfa (Sulfonamide Allergy PT UNSURE Verified 02/03/18 09:54 Antibiotics) OF REACTION codeine AdvReac NAUSEA Verified 02/03/18 09:54 tamsulosin [From Flomax] AdvReac DIZZINESS Verified 02/03/18 09:54 Review of Systems Constitutional: Reports: Malaise, Weakness. Denies: Chills, Fever Eyes: Denies: Eye discharge ENT: Denies: Congestion, Throat pain Respiratory: Reports: Cough (chronic), Dyspnea (chronic unchanged) Cardiovascular: Denies: Chest pain, Edema, Palpitations, Syncope Endocrine: Reports: Fatigue Gastrointestinal: Denies: Abdominal pain, Diarrhea, Nausea, Vomiting Genitourinary: Denies: Dysuria, Urgency Musculoskeletal: Denies: Arthralgia, Back pain, Myalgia Skin: Denies: Bruising, Change in color, Rash Neurological: Reports: Weakness (generalized). Denies: Headache Psychiatric: Denies: Anxiety Hematological/Lymphatic: Denies: Easy bleeding, Easy bruising, Swollen glands Past Medical History - SOCIAL HISTORY Smoking Status: Former smoker Drug Use: None - RESPIRATORY Hx Respiratory Disorders: Yes Hx Pneumonia: Yes Comment:: collapsed lung/brochial disease/home O2 most of the time - CARDIOVASCULAR Hx Cardio Disorders: Yes Hx Irregular Heartbeat: Yes - NEURO Hx Neuro Disorders: No - GI Hx GI Disorders: No - Hx Genitourinary Disorders: No - ENDOCRINE Hx Endocrine Disorders: No - MUSCULOSKELETAL Hx Musculoskeletal Disorders: No - PSYCH Hx Psych Problems: No - HEMATOLOGY/ONCOLOGY Hx Hematology/Oncology Disorders: No Physical Exam - General General Appearance: Alert, Oriented x3, Cooperative, No acute distress Limitations: No limitations - Head Head exam: Atraumatic, Normal inspection - Eye Eye exam: Normal appearance, PERRL. negative: Conjunctival injection - ENT ENT exam: Normal exam, Mucous membranes moist, Normal orophraynx Ear exam: Normal external inspection Nasal Exam: Normal inspection Mouth exam: Normal external inspection Teeth exam: Normal inspection Throat exam: Normal inspection - Neck Neck exam: Normal inspection - Respiratory Respiratory exam: Decreased breath sounds, Prolonged expiratory, Rhonchi. negative: Normal lung sounds bilaterally, Accessory muscle use, Rales, Respiratory distress, Wheezes - Cardiovascular Cardiovascular Exam: Tachycardia Peripheral Pulses: 2+: Radial (R), Radial (L) - GI/Abdominal GI/Abdominal exam: Soft. negative: Tenderness - Rectal Rectal exam: Deferred - exam: Deferred - Extremities Extremities exam: Normal inspection. negative: Pedal edema, Tenderness - Back Back exam: Denies: CVA tenderness (R), CVA tenderness (L) - Neurological Neurological exam: Alert, Oriented X3 - Psychiatric Psychiatric exam: Normal affect, Normal mood - Skin Skin exam: Dry, Intact, Normal color, Warm Course - Reevaluation(s) Reevaluation #1: EKG 03:11 EKG sinus tachycardia 114, intervals normal, axis normal, APCs, ST no acute changes. 02/15/18 03:18 See HPI for some of the summary of the [facility] notes BP at [facility] and multiple [facility] readings in 90's systolic 02/15/18 03:43 The CBC was reviewed. No anemia. WBC is 15. She has chronic elevated WBC likely from steroids. 02/15/18 03:47 No acute changes on the CMP The troponin is normal with her chronic symptoms. 02/15/18 03:49 02/15/18 04:01 HR improved to 98, Pulse ox 100%, 97/55 We discussed her results She seems to be near all her baseline readings and labs She has chronic symptoms that do not seem acutely exacerbated We discussed continuing the Diltiazem dosing as directed by Dr Alba and close follow up as scheduled 02/15/18 04:04 The patient states she is feeling much improved after the IVF, she feels like she is at baseline and ready for DC 02/15/18 04:09 Medical Decision Making - Lab Data Result diagrams: 02/15/18 03:15 02/15/18 03:15 Disposition Disposition: Discharge Clinical Impression: COPD (chronic obstructive pulmonary disease), Pulmonary fibrosis, unspecified, Physical deconditioning Disposition: Home, Self-Care Condition: (1) Good Instructions: Weakness (ED) Additional Instructions: Follow up as scheduled with your doctor and your smt machine operator Stay hydrated Return or call your smt machine operator if your blood pressure consistently is lower than your normal of 90, fever, vomiting or any new concerns Continue your Diltiazem as directed by Dr Alba Forms: Patient Portal Access Time of Disposition: 04:03 Quality - Quality Measures Quality Measures: N/A - Blood Pressure Screening Does Patient Have Any of the Following: No Blood Pressure Classification: Normal BP Reading Systolic Measurement: 103 Diastolic Measurement: 70 Screening for High Blood Pressure: < Normal BP, F/U Not Required > [G8882]
[2018-02-15 03:25] LABS: BASO % 0.1 % (0-6); EOS % 2.9 % (0-6); GRAN % 81.3 % (47-80); HEMATOCRIT 38.8 % (35.0-47.0); HEMOGLOBIN 12.2 gm/dl (11.6-16.0); LYMPH % 5.7 % (16-45); MEAN CELL VOLUME 79.5 fl (81-97); MEAN CORPUSCULAR HGB CONC 31.4 g/dl (32-36); MEAN PLATELET VOLUME 8.6 fl (7.4-10.4); PLATELET COUNT 425 K/uL (130-400); RED BLOOD COUNT 4.88 M/uL (3.80-5.40); WHITE BLOOD COUNT W/O DIFF 15.5 K/uL (4.2-12.2)
[2018-02-15 03:36] LABS: BLOOD UREA NITROGEN 22 mg/dL (8-23)
[2018-02-15 03:37] LABS: CREATININE 0.7 mg/dL (0.5-0.9); EST GLOMERULAR FILTRATION RATE > 60 mL/min; TOTAL PROTEIN 6.3 g/dL (6.6-8.7)
[2018-02-15 03:39] LABS: GLUCOSE,RANDOM 112 mg/dL (74-109)
[2018-02-15 03:42] LABS: ALB/GLOB RATIO 0.8 (1.1-1.8); ALBUMIN 2.8 g/dL (4.0-5.0); ALKALINE PHOSPHATASE 96 U/L (35-104); ALT/SGPT 30 U/L (<33); AST/SGOT 22 U/L (10.0-35.0)
[2018-02-15 03:53] LABS: THYROID STIMULATING HORMONE 2.95 uIU/mL (0.270-4.20)
== END 2018-02-15 04:19 | disposition home or self-care (01) ==
LOC: ER 02:52
DX: J44.9 Chronic obstructive pulmonary disease, unspecified (principal); J84.10 Pulmonary fibrosis, unspecified; I95.9 Hypotension, unspecified; R53.81 Other malaise; D72.829 Elevated white blood cell count, unspecified; R06.02 Shortness of breath; I48.91 Unspecified atrial fibrillation; Z99.81 Dependence on supplemental oxygen; Z79.01 Long term (current) use of anticoagulants; Z87.891 Personal history of nicotine dependence
CPT/HCPCS: 80053; 84443; 84484; 85025; 99284

== ENCOUNTER 2018-02-23 11:46 | Emergency (ER) | payer MEDICARE, BC ==
[2018-02-23] MEDS ORDERED: METHYLPREDNISOLONE PF 125MG/VIAL IVP ONE (12:11)
[2018-02-23] MEDS ORDERED: IPRATROPIUM/ALBUTEROL (0.5MG/3MG) NEB INH ONE (12:11)
[2018-02-23] MEDS ORDERED: 0.9 % SODIUM CHLORIDE 500ML 500 ML IV SCH (12:15)
--- NOTE | 2018-02-23 12:15 | Emergency Department Record ---
History of Present Illness - General Chief Complaint: Difficulty Breathing Stated Complaint: ALEX Time Seen by Provider: 02/23/18 11:58 Mode of Arrival: Wheelchair - History of Present Illness Initial Comments: patient states marco san wants IV fluids and solumedrol to help her breathing and currently she is on [facility]. She denies chest pain and refused a chest xray and she has pulmonary fibrosis and is on 3 liters per minute home oxygen. Onset/Timin -: Days(s) Radiation: Back Severity: Mild Severity scale (1-10): 3 Quality: Aching Improves With: Nothing - Related Data Home Oxygen Therapy: Yes Home Oxygen Amount: 3 Liters Previous Rx's Medication Instructions Recorded Prednisone [Prednisone 10Mg] 10 mg PO ASDIR #30 tab 02/23/18 Allergies Allergy/AdvReac Type Severity Reaction Status Date / Time levofloxacin [From Levaquin] Allergy HIVES Verified 02/23/18 11:54 Sulfa (Sulfonamide Allergy PT UNSURE Verified 02/23/18 11:54 Antibiotics) OF REACTION codeine AdvReac NAUSEA Verified 02/23/18 11:54 tamsulosin [From Flomax] AdvReac DIZZINESS Verified 02/23/18 11:54 Travel Screening - Travel/Exposure Within Last 30 Days Have you traveled within the last 30 days?: No - Travel/Exposure Within Last Year Have you traveled outside the [place] in the last year?: No - Additonal Travel Details Have you been exposed to anyone with a communicable illness?: No - Travel Symptoms Symptom Screening: None Review of Systems Reviewed: No additional complaints except as noted below Constitutional: Reports: As per HPI. Denies: Chills, Fever, Malaise, Night sweats, Weakness, Weight change Eyes: Reports: As per HPI. Denies: Eye discharge, Eye pain, Photophobia, Vision change ENT: Reports: As per HPI. Denies: Congestion, Dental pain, Ear pain, Epistaxis , Hearing loss, Throat pain Respiratory: Reports: As per HPI, Dyspnea. Denies: Cough, Hemoptysis, Stridor, Wheezes Cardiovascular: Reports: As per HPI. Denies: Arrhythmia, Chest pain, Dyspnea on exertion, Edema, Murmurs, Orthopnea, Palpitations, Paroxysmal nocturnal dyspnea, Rheumatic Fever, Syncope Endocrine: Reports: As per HPI. Denies: Fatigue, Heat or cold intolerance, Polydipsia, Polyuria Gastrointestinal: Reports: As per HPI. Denies: Abdominal pain, Constipation, Diarrhea, Hematemesis, Hematochezia, Melena, Nausea, Vomiting Genitourinary: Reports: As per HPI. Denies: Abnormal menses, Discharge, Dyspareunia, Dysuria, Frequency, Hematuria, Incontinence, Retention, Urgency Musculoskeletal: Reports: As per HPI. Denies: Arthralgia, Back pain, Gout, Joint swelling, Myalgia, Neck pain Skin: Reports: As per HPI. Denies: Bruising, Change in color, Change in hair/ nails, Lesions, Pruritus, Rash Neurological: Reports: As per HPI. Denies: Abnormal gait, Confusion, Headache, Numbness, Paresthesias, Seizure, Tingling, Tremors, Vertigo, Weakness Psychiatric: Reports: As per HPI. Denies: Anxiety, Auditory hallucinations, Depression, Homicidal thoughts, Suicidal thoughts, Visual hallucinations Hematological/Lymphatic: Reports: As per HPI. Denies: Anemia, Blood Clots, Easy bleeding, Easy bruising, Swollen glands Past Medical History - SOCIAL HISTORY Smoking Status: Former smoker Alcohol Use: None Drug Use: None - RESPIRATORY Hx Respiratory Disorders: Yes Hx Bronchitis: Yes (micro bacteria) Hx Pneumonia: Yes Comment:: collapsed lung/brochial disease/home O2 most of the time - CARDIOVASCULAR Hx Cardio Disorders: Yes Hx Irregular Heartbeat: Yes - NEURO Hx Neuro Disorders: No - GI Hx GI Disorders: No - Hx Genitourinary Disorders: No - ENDOCRINE Hx Endocrine Disorders: No - MUSCULOSKELETAL Hx Musculoskeletal Disorders: No - PSYCH Hx Psych Problems: No - HEMATOLOGY/ONCOLOGY Hx Hematology/Oncology Disorders: No Family Medical History Any Significant Family History?: Yes Hx Cancer: Mother, Children *Cancer Comment: Grandchildren Physical Exam - General General Appearance: Alert, Oriented x3, Cooperative, Mild distress - Head Head exam: Normal inspection - Eye Eye exam: Normal appearance, PERRL Pupils: Normal accommodation - ENT ENT exam: Normal exam, Mucous membranes moist, Normal external ear exam, Normal orophraynx, TM's normal bilaterally Ear exam: Normal external inspection. negative: External canal tenderness Nasal Exam: Normal inspection. negative: Discharge, Sinus tenderness Mouth exam: Normal external inspection, Tongue normal Teeth exam: Normal inspection. negative: Dental caries Throat exam: Normal inspection. negative: Tonsillar erythema, Tonsillar exudate - Neck Neck exam: Normal inspection, Full ROM. negative: Tenderness - Respiratory Respiratory exam: Normal lung sounds bilaterally. negative: Respiratory distress - Cardiovascular Cardiovascular Exam: Regular rate, Normal rhythm, Normal heart sounds - GI/Abdominal GI/Abdominal exam: Soft, Normal bowel sounds. negative: Tenderness - Rectal Rectal exam: Deferred - exam: Deferred - Extremities Extremities exam: Normal inspection, Full ROM, Normal capillary refill. negative: Tenderness - Back Back exam: Reports: Normal inspection, Full ROM. Denies: Muscle spasm, Rash noted, Tenderness - Neurological Neurological exam: Alert, Normal gait, Oriented X3, Reflexes normal - Psychiatric Psychiatric exam: Normal affect, Normal mood - Skin Skin exam: Dry, Intact, Normal color, Warm Course Vital Signs 02/23/18 11:48 Temperature 97.4 F L Pulse Rate 84 Respiratory 28 H Rate Blood Pressure 106/60 Pulse Ox 99 Medical Decision Making - Data Complexity MDM Data: Labs Ordered and/or Reviewed (hg 10. , trop neg, ) - Lab Data Result diagrams: 02/23/18 12:25 02/23/18 12:25 Disposition Clinical Impression: Pulmonary fibrosis, unspecified, Dehydration COPD (chronic obstructive pulmonary disease) Qualifiers: COPD type: unspecified COPD Qualified Code(s): J44.9 - Chronic obstructive pulmonary disease, unspecified Disposition: Home, Self-Care Condition: (1) Good Instructions: Dyspnea (ED), COPD (Chronic Obstructive Pulmonary Disease) (ED) Additional Instructions: follow up with primary Dr in one week and keep appointment with cardiology continue with home meds and take prednisone taper dose from 40 mg Prescriptions: Prednisone [Prednisone 10Mg] 10 mg PO ASDIR #30 tab Forms: Patient Portal Access Time of Disposition: 13:13 Quality - Quality Measures Quality Measures: N/A - Blood Pressure Screening Does Patient Have Any of the Following: No Blood Pressure Classification: Normal BP Reading Systolic Measurement: 106 Diastolic Measurement: 60 Screening for High Blood Pressure: < Normal BP, F/U Not Required > [G8783]
[2018-02-23 12:37] LABS: HEMATOCRIT 34.3 % (35.0-47.0); HEMOGLOBIN 10.3 gm/dl (11.6-16.0); MEAN CELL VOLUME 81.7 fl (81-97); MEAN CORPUSCULAR HEMOGLOBIN 24.5 pg (27-33); MEAN PLATELET VOLUME 8.2 fl (7.4-10.4); PLATELET COUNT 483 K/uL (130-400); RED CELL DISTRIBUTION WIDTH 14.9 % (11.5-14.5); WHITE BLOOD COUNT W/O DIFF 9.9 K/uL (4.2-12.2)
[2018-02-23 12:48] LABS: BLOOD UREA NITROGEN 18 mg/dL (8-23); CREATININE 0.8 mg/dL (0.5-0.9); EST GLOMERULAR FILTRATION RATE > 60 mL/min
[2018-02-23 12:51] LABS: GLUCOSE,RANDOM 122 mg/dL (74-109)
== END 2018-02-23 13:33 | disposition home or self-care (01) ==
LOC: ER 11:46
DX: J84.10 Pulmonary fibrosis, unspecified (principal); E86.0 Dehydration; J44.9 Chronic obstructive pulmonary disease, unspecified; Z87.891 Personal history of nicotine dependence; Z99.81 Dependence on supplemental oxygen
CPT/HCPCS: 80048; 84484; 85027; 93005; 93010; 94640; 96374; 99284; J2930; J7040

== ENCOUNTER 2018-02-28 17:16 | Emergency (ER) | payer MEDICARE, BC ==
[2018-02-28] MEDS ORDERED: 0.9 % SODIUM CHLORIDE 1,000 ML BAG IV ONE ×2 (18:56→18:57)
--- NOTE | 2018-02-28 18:56 | Emergency Department Record ---
History of Present Illness - General Chief complaint: Nausea, Vomiting, Diarrhea Stated complaint: DIARRHEA, Time Seen by Provider: 02/28/18 18:48 Source: Patient Mode of Arrival: Ambulatory - History of Present Illness Initial comments: The patient states that she was constipated and passing only hard pellets of stool, so she took 1/2 botte of MG citrate yesterday, and the other half this morning. Since then she has had diarrhea so much , she thinks more than 5 times , that she is dehydrated. She has multiple medical problems including home oxygen 3 liters and chronic antibiotic use prescribed from [facility]. She was seen here on 02-15-18 also for dehydration. Onset/Timin -: Days(s) Associated Abdominal Pain: No Improves with: None Worsens with: None Associated Symptoms: Other - Related Data Previous Rx's Medication Instructions Recorded Prednisone [Prednisone 10Mg] 10 mg PO ASDIR #30 tab 02/23/18 Allergies Allergy/AdvReac Type Severity Reaction Status Date / Time levofloxacin [From Levaquin] Allergy HIVES Verified 02/28/18 18:10 Sulfa (Sulfonamide Allergy PT UNSURE Verified 02/28/18 18:10 Antibiotics) OF REACTION codeine AdvReac NAUSEA Verified 02/28/18 18:10 tamsulosin [From Flomax] AdvReac DIZZINESS Verified 02/28/18 18:10 Travel Screening - Travel/Exposure Within Last 30 Days Have you traveled within the last 30 days?: No Review of Systems Reviewed: No additional complaints except as noted below Constitutional: Reports: As per HPI. Denies: Chills, Fever, Malaise, Night sweats, Weakness, Weight change Eyes: Reports: As per HPI. Denies: Eye discharge, Eye pain, Photophobia, Vision change ENT: Reports: As per HPI. Denies: Congestion, Dental pain, Ear pain, Epistaxis , Hearing loss, Throat pain Respiratory: Reports: As per HPI. Denies: Cough, Dyspnea, Hemoptysis, Stridor, Wheezes Cardiovascular: Reports: As per HPI. Denies: Arrhythmia, Chest pain, Dyspnea on exertion, Edema, Murmurs, Orthopnea, Palpitations, Paroxysmal nocturnal dyspnea, Rheumatic Fever, Syncope Endocrine: Reports: As per HPI. Denies: Fatigue, Heat or cold intolerance, Polydipsia, Polyuria Gastrointestinal: Reports: As per HPI. Denies: Abdominal pain, Constipation, Diarrhea, Hematemesis, Hematochezia, Melena, Nausea, Vomiting Genitourinary: Reports: As per HPI. Denies: Abnormal menses, Discharge, Dyspareunia, Dysuria, Frequency, Hematuria, Incontinence, Retention, Urgency Musculoskeletal: Reports: As per HPI. Denies: Arthralgia, Back pain, Gout, Joint swelling, Myalgia, Neck pain Skin: Reports: As per HPI. Denies: Bruising, Change in color, Change in hair/ nails, Lesions, Pruritus, Rash Neurological: Reports: As per HPI. Denies: Abnormal gait, Confusion, Headache, Numbness, Paresthesias, Seizure, Tingling, Tremors, Vertigo, Weakness Psychiatric: Reports: As per HPI. Denies: Anxiety, Auditory hallucinations, Depression, Homicidal thoughts, Suicidal thoughts, Visual hallucinations Hematological/Lymphatic: Reports: As per HPI. Denies: Anemia, Blood Clots, Easy bleeding, Easy bruising, Swollen glands Past Medical History - SOCIAL HISTORY Smoking Status: Former smoker Alcohol Use: None Drug Use: None - RESPIRATORY Hx Respiratory Disorders: Yes Hx Bronchitis: Yes (micro bacteria) Hx Pneumonia: Yes Comment:: collapsed lung/brochial disease/home O2 most of the time - CARDIOVASCULAR Hx Cardio Disorders: Yes Hx Irregular Heartbeat: Yes - NEURO Hx Neuro Disorders: No - GI Hx GI Disorders: No - Hx Genitourinary Disorders: No - ENDOCRINE Hx Endocrine Disorders: No - MUSCULOSKELETAL Hx Musculoskeletal Disorders: No - PSYCH Hx Psych Problems: No - HEMATOLOGY/ONCOLOGY Hx Hematology/Oncology Disorders: No Family Medical History Any Significant Family History?: Yes Hx Cancer: Mother, Children *Cancer Comment: Grandchildren Physical Exam - General General Appearance: Alert, Oriented x3, Cooperative, Mild distress (oxygen by nasal cannula, speaks full sentences breathlessly, chronic), Other (cachectic) - Head Head exam: Normal inspection - Eye Eye exam: Normal appearance, PERRL Pupils: Normal accommodation - ENT ENT exam: Normal exam, Mucous membranes moist, Normal external ear exam, Normal orophraynx, TM's normal bilaterally Ear exam: Normal external inspection. negative: External canal tenderness Nasal Exam: Normal inspection. negative: Discharge, Sinus tenderness Mouth exam: Normal external inspection, Tongue normal Teeth exam: Normal inspection. negative: Dental caries Throat exam: Normal inspection. negative: Tonsillar erythema, Tonsillar exudate - Neck Neck exam: Normal inspection, Full ROM. negative: Tenderness - Respiratory Respiratory exam: Normal lung sounds bilaterally. negative: Respiratory distress - Cardiovascular Cardiovascular Exam: Regular rate, Normal rhythm, Normal heart sounds - GI/Abdominal GI/Abdominal exam: Soft, Normal bowel sounds. negative: Tenderness - Rectal Rectal exam: Deferred - exam: Deferred - Extremities Extremities exam: Normal inspection, Full ROM, Normal capillary refill. negative: Tenderness - Back Back exam: Reports: Normal inspection, Full ROM. Denies: Muscle spasm, Rash noted, Tenderness - Neurological Neurological exam: Alert, Normal gait, Oriented X3, Reflexes normal - Psychiatric Psychiatric exam: Normal affect, Normal mood - Skin Skin exam: Dry, Intact, Normal color, Warm Course Vital Signs 02/28/18 18:04 Temperature 98.2 F Pulse Rate 87 Respiratory 18 Rate Blood Pressure 109/55 Pulse Ox 97 - Reevaluation(s) Reevaluation #1: 02/28/18 20:19 Feeling better and is ready to go home. Reevaluation #2: Patient is now up to bathroom urinating. Labs reviewed. Ready for discharge. 02/28/18 20:21 Medical Decision Making - Management Options MDM Management: No Additional Work-up Planned - Data Complexity MDM Data: Labs Ordered and/or Reviewed - Lab Data Result diagrams: 02/28/18 18:16 02/28/18 18:16 Disposition Disposition: Discharge Clinical Impression: Dehydration Disposition: Home, Self-Care Condition: (2) Stable Instructions: Acute Nausea and Vomiting (ED), Dehydration (ED) Additional Instructions: Increase fluids. Discontinue magnesium citrate. Follow up with PCP. Quality - Quality Measures Quality Measures: N/A - Blood Pressure Screening Does Patient Have Any of the Following: No Blood Pressure Classification: Normal BP Reading Systolic Measurement: 109 Diastolic Measurement: 55 Screening for High Blood Pressure: Patient Exclusion, Hx of HTN [G9744]
[2018-02-28 19:07] LABS: HEMATOCRIT 36.5 % (35.0-47.0); HEMOGLOBIN 11.3 gm/dl (11.6-16.0); MEAN CELL VOLUME 81.1 fl (81-97); MEAN CORPUSCULAR HEMOGLOBIN 25.1 pg (27-33); MEAN PLATELET VOLUME 8.7 fl (7.4-10.4); PLATELET COUNT 568 K/uL (130-400); RED CELL DISTRIBUTION WIDTH 15.8 % (11.5-14.5); WHITE BLOOD COUNT W/O DIFF 9.3 K/uL (4.2-12.2)
[2018-02-28 19:16] LABS: PLATELET ESTIMATE INCREASED (NORMAL)
[2018-02-28 19:27] LABS: BLOOD UREA NITROGEN 27 mg/dL (8-23); CREATININE 0.7 mg/dL (0.5-0.9); EST GLOMERULAR FILTRATION RATE > 60 mL/min; TOTAL PROTEIN 7.1 g/dL (6.6-8.7)
[2018-02-28 19:29] LABS: GLUCOSE,RANDOM 186 mg/dL (74-109)
[2018-02-28 19:32] LABS: ALB/GLOB RATIO 0.9 (1.1-1.8); ALBUMIN 3.4 g/dL (4.0-5.0); ALKALINE PHOSPHATASE 94 U/L (35-104); ALT/SGPT 27 U/L (<33); AST/SGOT 16 U/L (10.0-35.0); LIPASE 48 U/L (13-60)
[2018-02-28 19:46] LABS: URINE APPEARANCE CLOUDY; URINE BILIRUBIN NEGATIVE (NEGATIVE); URINE BLOOD NEGATIVE (NEGATIVE); URINE COLOR YELLOW; URINE GLUCOSE (UA) NEGATIVE (NEGATIVE); URINE KETONE NEGATIVE (NEGATIVE); URINE LEUKOCYTE ESTERASE NEGATIVE (NEGATIVE); URINE NITRITE NEGATIVE (NEGATIVE); URINE PROTEIN NEGATIVE (NEGATIVE); URINE UROBILINOGEN 0.2 E.U./dL (0.20 - 1.00)
== END 2018-02-28 20:36 | disposition home or self-care (01) ==
LOC: ER 17:16
DX: E86.0 Dehydration (principal); R11.2 Nausea with vomiting, unspecified; R19.7 Diarrhea, unspecified; Z99.81 Dependence on supplemental oxygen; Z87.891 Personal history of nicotine dependence
CPT/HCPCS: 80053; 81003; 83690; 85027; 99284

== ENCOUNTER 2018-03-07 13:29 | Emergency (ER) | payer MEDICARE, BC ==
[2018-03-07 14:37] LABS: HEMATOCRIT 38.7 % (35.0-47.0); MEAN CELL VOLUME 81.3 fl (81-97); MEAN CORPUSCULAR HEMOGLOBIN 25.2 pg (27-33); MEAN PLATELET VOLUME 8.7 fl (7.4-10.4); PLATELET COUNT 434 K/uL (130-400); RED BLOOD COUNT 4.76 M/uL (3.80-5.40); RED CELL DISTRIBUTION WIDTH 17.3 % (11.5-14.5); WHITE BLOOD COUNT W/O DIFF 11.9 K/uL (4.2-12.2)
--- NOTE | 2018-03-07 14:39 | Emergency Department Record ---
History of Present Illness - General Chief complaint: Weakness Stated complaint: W3EAK DEHYDRATED Time Seen by Provider: 03/07/18 14:34 Source: Patient Mode of Arrival: Ambulatory Limitations: No limitations - History of Present Illness Initial comments: The patient is here due to generalized weakness and lack of energy for 1-2 days. She has a hx of becoming dehydrated per the patient due to her lung medicines. She denies any nausea, vomiting, diarrhea, or fever. The patient states when this happens she needs to come to the ER for IVF per her lung doctor in [place]. She denies any other new symptoms. MD Complaint: Generalized weakness, Lack of energy Onset/Timin -: Days(s) Location: Generalized Associated Symptoms: Denies other symptoms - [place] Coma Scale Eye Response: (4) Open spontaneously Motor Response: (6) Obeys commands Verbal Response: (5) Oriented [place] Total: 15 - Related Data Previous Rx's Medication Instructions Recorded Prednisone [Prednisone 10Mg] 10 mg PO ASDIR #30 tab 02/23/18 Allergies Allergy/AdvReac Type Severity Reaction Status Date / Time levofloxacin [From Levaquin] Allergy HIVES Verified 03/07/18 13:52 Sulfa (Sulfonamide Allergy PT UNSURE Verified 03/07/18 13:52 Antibiotics) OF REACTION codeine AdvReac NAUSEA Verified 03/07/18 13:52 tamsulosin [From Flomax] AdvReac DIZZINESS Verified 03/07/18 13:52 Travel Screening - Travel/Exposure Within Last 30 Days Have you traveled within the last 30 days?: No Review of Systems Constitutional: Denies: Chills, Fever Eyes: Denies: Eye discharge ENT: Denies: Congestion Respiratory: Denies: Cough, Dyspnea Past Medical History - SOCIAL HISTORY Smoking Status: Former smoker Alcohol Use: None Drug Use: None - RESPIRATORY Hx Respiratory Disorders: Yes Hx Bronchitis: Yes (micro bacteria) Hx Pneumonia: Yes Comment:: collapsed lung/brochial disease/home O2 most of the time - CARDIOVASCULAR Hx Cardio Disorders: Yes Hx Irregular Heartbeat: Yes - NEURO Hx Neuro Disorders: No - GI Hx GI Disorders: No - Hx Genitourinary Disorders: No - ENDOCRINE Hx Endocrine Disorders: No - MUSCULOSKELETAL Hx Musculoskeletal Disorders: No - PSYCH Hx Psych Problems: No - HEMATOLOGY/ONCOLOGY Hx Hematology/Oncology Disorders: No Family Medical History Any Significant Family History?: Yes Hx Cancer: Mother, Children *Cancer Comment: Grandchildren Physical Exam - General General Appearance: Alert, Oriented x3, Cooperative, No acute distress - Head Head exam: Atraumatic, Normocephalic, Normal inspection - Eye Eye exam: Normal appearance, PERRL - Neck Neck exam: Normal inspection, Full ROM. negative: Tenderness - Respiratory Respiratory exam: Normal lung sounds bilaterally. negative: Respiratory distress - Cardiovascular Cardiovascular Exam: Regular rate, Normal rhythm, Normal heart sounds - GI/Abdominal GI/Abdominal exam: Soft, Normal bowel sounds. negative: Tenderness - Extremities Extremities exam: Normal inspection, Full ROM, Normal capillary refill. negative: Tenderness Course Vital Signs 03/07/18 13:52 Temperature 98.0 F Pulse Rate 80 Respiratory 22 Rate Blood Pressure 114/67 Pulse Ox 93 L - Reevaluation(s) Reevaluation #1: The patient is feeling well. Her infusion of IVF is done and she denies any new issues. She feels ready for home. 03/07/18 15:08 Medical Decision Making - Data Complexity MDM Data: Labs Ordered and/or Reviewed - Lab Data Result diagrams: 03/07/18 14:16 03/07/18 14:16 Disposition Disposition: Discharge Clinical Impression: Dehydration Disposition: Home, Self-Care Condition: (2) Stable Instructions: Weakness (ED) Additional Instructions: Please continue your regular medicines and see your family doctor for recheck if needed. Return to the ER for any worsening symptoms. Forms: Patient Portal Access Time of Disposition: 15:09 Quality - Quality Measures Quality Measures: N/A - Blood Pressure Screening View Details: Yes Does Patient Have Any of the Following: No Blood Pressure Classification: Normal BP Reading Systolic Measurement: 114 Diastolic Measurement: 67 Screening for High Blood Pressure: < Normal BP, F/U Not Required > [G8783]
[2018-03-07 14:51] LABS: BLOOD UREA NITROGEN 13 mg/dL (8-23); CREATININE 0.6 mg/dL (0.5-0.9); EST GLOMERULAR FILTRATION RATE > 60 mL/min
[2018-03-07 14:53] LABS: GLUCOSE,RANDOM 93 mg/dL (74-109)
[2018-03-07 14:56] LABS: ALBUMIN 3.5 g/dL (4.0-5.0); ALKALINE PHOSPHATASE 83 U/L (45-87); ALT/SGPT 18 U/L (<33); AST/SGOT 14 U/L (10.0-35.0)
[2018-03-07] MEDS ORDERED: SODIUM CHLORIDE 0.9% 500 ML IV ONE (15:28)
== END 2018-03-07 15:28 | disposition home or self-care (01) ==
LOC: ER 13:29
DX: E86.0 Dehydration (principal); R53.1 Weakness; J98.19 Other pulmonary collapse; Z99.81 Dependence on supplemental oxygen; Z79.01 Long term (current) use of anticoagulants
CPT/HCPCS: 80053; 85027; 99284

== ENCOUNTER 2018-03-12 15:35 | Emergency (ER) | payer MEDICARE, BC ==
[2018-03-12] MEDS ORDERED: 0.9 % SODIUM CHLORIDE 1000ML 500 ML IV ONE (15:51)
--- NOTE | 2018-03-12 15:58 | Emergency Department Record ---
History of Present Illness - General Chief complaint: Fatigue and Weakness Stated complaint: DEHYDRATED Time Seen by Provider: 03/12/18 15:51 Source: Patient, Family (daughter) Mode of Arrival: Wheelchair Limitations: No limitations - History of Present Illness Initial comments: Pt states she has felt "just lifeless today...I need 500cc of saline". Pt states she is here frequently for the same. She denies fever, cough, vomiting, or new symptoms. No SALAZAR, no lateralizing weakness. Onset/Timin -: Days(s) Improves with: None Worsens with: None - [place] Coma Scale Eye Response: (4) Open spontaneously Motor Response: (6) Obeys commands Verbal Response: (5) Oriented [place] Total: 15 - Related Data Home Medications Medication Instructions Recorded Confirmed Last Taken Azithromycin 250 mg PO DAILY 03/12/18 03/12/18 Unknown Clofazimine 1 gm MC DAILY 03/12/18 03/12/18 Unknown Allergies Allergy/AdvReac Type Severity Reaction Status Date / Time levofloxacin [From Levaquin] Allergy HIVES Verified 03/12/18 15:42 Sulfa (Sulfonamide Allergy PT UNSURE Verified 03/12/18 15:42 Antibiotics) OF REACTION codeine AdvReac NAUSEA Verified 03/12/18 15:42 tamsulosin [From Flomax] AdvReac DIZZINESS Verified 03/12/18 15:42 Travel Screening - Travel/Exposure Within Last 30 Days Have you traveled within the last 30 days?: No Review of Systems Constitutional: Reports: Malaise. Denies: Chills, Fever, Night sweats Eyes: Denies: Eye discharge, Photophobia ENT: Denies: Congestion, Ear pain, Throat pain Respiratory: Denies: Cough, Dyspnea, Hemoptysis Cardiovascular: Denies: Arrhythmia, Chest pain, Syncope Endocrine: Denies: Polydipsia, Polyuria Gastrointestinal: Denies: Abdominal pain, Diarrhea, Nausea, Vomiting Genitourinary: Denies: Dysuria, Hematuria Musculoskeletal: Denies: Arthralgia, Back pain Skin: Denies: Bruising Neurological: Denies: Abnormal gait, Headache, Weakness Psychiatric: Denies: Anxiety, Suicidal thoughts Hematological/Lymphatic: Denies: Anemia, Blood Clots Past Medical History - SOCIAL HISTORY Smoking Status: Former smoker Alcohol Use: None Drug Use: None - RESPIRATORY Hx Respiratory Disorders: Yes Hx Bronchitis: Yes (micro bacteria) Hx Pneumonia: Yes Comment:: collapsed lung/brochial disease/home O2 most of the time - CARDIOVASCULAR Hx Cardio Disorders: Yes Hx Irregular Heartbeat: Yes - NEURO Hx Neuro Disorders: No - GI Hx GI Disorders: No - Hx Genitourinary Disorders: No - ENDOCRINE Hx Endocrine Disorders: No - MUSCULOSKELETAL Hx Musculoskeletal Disorders: No - PSYCH Hx Psych Problems: No - HEMATOLOGY/ONCOLOGY Hx Hematology/Oncology Disorders: No Family Medical History Any Significant Family History?: Yes Hx Cancer: Mother, Children *Cancer Comment: Grandchildren Physical Exam - General General Appearance: Alert, Oriented x3, Cooperative, No acute distress - Head Head exam: Atraumatic - Eye Eye exam: Normal appearance, PERRL - ENT ENT exam: Normal exam, Mucous membranes moist, Normal external ear exam, Normal orophraynx, TM's normal bilaterally - Neck Neck exam: Normal inspection, Full ROM. negative: Tenderness - Respiratory Respiratory exam: Normal lung sounds bilaterally. negative: Respiratory distress - Cardiovascular Cardiovascular Exam: Regular rate, Normal rhythm, Normal heart sounds Peripheral Pulses: 2+: Radial (R), Radial (L) - GI/Abdominal GI/Abdominal exam: Soft (flat/thin), Normal bowel sounds. negative: Tenderness - Extremities Extremities exam: Normal inspection, Full ROM, Normal capillary refill. negative: Tenderness - Back Back exam: Reports: Normal inspection, Full ROM. Denies: Muscle spasm, Rash noted, Tenderness - Neurological Neurological exam: Alert, Normal gait, Oriented X3. negative: Motor sensory deficit - Psychiatric Psychiatric exam: Normal affect, Normal mood - Skin Skin exam: Normal color. negative: Rash Course Vital Signs 03/12/18 15:38 Temperature 97.4 F L Pulse Rate 88 Respiratory 26 H Rate Blood Pressure 130/64 Pulse Ox 95 - Reevaluation(s) Reevaluation #1: 03/12/18 16:20 Pt feeling much better after IV fluids and is ready "to go". Disposition Disposition: Discharge Clinical Impression: Weakness Disposition: Home, Self-Care Condition: (2) Stable Instructions: Fatigue (ED) Additional Instructions: See you doctor or return here as needed Forms: Patient Portal Access Time of Disposition: 16:20 Quality - Quality Measures Quality Measures: N/A - Blood Pressure Screening Does Patient Have Any of the Following: No Blood Pressure Classification: Pre-Hypertensive BP Reading Systolic Measurement: 130 Diastolic Measurement: 64 Screening for High Blood Pressure: < Pre-Hypertensive BP, F/U Documented > [ G8950] Pre-Hypertensive Follow-up Interventions: Follow-up with rescreen every year.
== END 2018-03-12 16:35 | disposition home or self-care (01) ==
LOC: ER 15:35
DX: R53.1 Weakness (principal); R53.83 Other fatigue; Z87.891 Personal history of nicotine dependence; Z79.01 Long term (current) use of anticoagulants
CPT/HCPCS: 99284; J7030

== ENCOUNTER 2018-05-03 11:07 | Emergency (ER) | payer MEDICARE, BC ==
--- NOTE | 2018-05-03 11:33 | Emergency Department Record ---
History of Present Illness - General Chief Complaint: General Stated Complaint: ALLERGIC REACTION Time Seen by Provider: 05/03/18 11:16 Source: Patient Mode of Arrival: EMS Limitations: No limitations - History of Present Illness Initial comments: The patient is here due not feeling well for at least 2 days. She has a hx of end stage pulmonary fibrosis and is on 5L of home O2 and also on home Hospice. For the last 2 days she feels like her tongue has been thicker than normal and also feels like her face may be swollen. Additionally her nose is congested. There has been no hx of cough, increased SOB, fever, or sputum production. The patient also states she is feeling more unsteady on her feet for the last 4 days or so. It seems that her oral Morphine was increased 5 days ago and she is also taking Ativan and Benadryl. The patient states her Hospice nurse came in this AM and had her sent to the ER due to having a possible allergic rxn. The patient denies any rash, itching, or swelling. Onset/Timin -: Days(s) - Related Data Home Medications Medication Instructions Recorded Confirmed Last Taken Lorazepam [Ativan] 0.5 mg PO Q4H PRN 05/03/18 05/03/18 Unknown Morphine Sulfate 0.25 ml PO Q4H 05/03/18 05/03/18 Unknown Prednisone [Prednisone 10Mg] 10 mg PO BID 05/03/18 05/03/18 Unknown Allergies Allergy/AdvReac Type Severity Reaction Status Date / Time levofloxacin [From Levaquin] Allergy HIVES Verified 03/12/18 15:42 Sulfa (Sulfonamide Allergy PT UNSURE Verified 03/12/18 15:42 Antibiotics) OF REACTION codeine AdvReac NAUSEA Verified 03/12/18 15:42 tamsulosin [From Flomax] AdvReac DIZZINESS Verified 03/12/18 15:42 Travel Screening - Travel/Exposure Within Last 30 Days Have you traveled within the last 30 days?: No Review of Systems Constitutional: Denies: Chills, Fever Eyes: Denies: Eye discharge ENT: Denies: Congestion Respiratory: Reports: Cough, Dyspnea (chronic.) Cardiovascular: Denies: Arrhythmia Endocrine: Reports: Fatigue Gastrointestinal: Denies: Nausea Genitourinary: Denies: Dysuria Musculoskeletal: Denies: Arthralgia Skin: Denies: Bruising Past Medical History - SOCIAL HISTORY Smoking Status: Former smoker - RESPIRATORY Hx Respiratory Disorders: Yes Hx Bronchitis: Yes (micro bacteria) Hx Pneumonia: Yes Comment:: collapsed lung/brochial disease/home O2 most of the time - CARDIOVASCULAR Hx Cardio Disorders: Yes Hx Irregular Heartbeat: Yes - NEURO Hx Neuro Disorders: No - GI Hx GI Disorders: No - Hx Genitourinary Disorders: No - ENDOCRINE Hx Endocrine Disorders: No - MUSCULOSKELETAL Hx Musculoskeletal Disorders: No - PSYCH Hx Psych Problems: No - HEMATOLOGY/ONCOLOGY Hx Hematology/Oncology Disorders: No Family Medical History Any Significant Family History?: Yes Hx Cancer: Mother, Children *Cancer Comment: Grandchildren Physical Exam - General General Appearance: Alert, Oriented x3, Cooperative, No acute distress - Head Head exam: Atraumatic, Normocephalic, Normal inspection - Eye Eye exam: Normal appearance, PERRL - ENT ENT exam: Normal exam Mouth exam: Normal external inspection, Tongue normal (but dry. There is no tongue swelling or edema.). negative: Tongue elevation Throat exam: Normal inspection. negative: Tonsillar erythema, Tonsillar exudate - Neck Neck exam: Normal inspection, Full ROM. negative: Tenderness - Respiratory Respiratory exam: Rhonchi (bilaterally (Chronic)). negative: Normal lung sounds bilaterally - Cardiovascular Cardiovascular Exam: Regular rate, Normal rhythm, Normal heart sounds - GI/Abdominal GI/Abdominal exam: Soft, Normal bowel sounds. negative: Tenderness - Extremities Extremities exam: Normal inspection, Full ROM, Normal capillary refill. negative: Tenderness - Back Back exam: Reports: Normal inspection - Neurological Neurological exam: Alert, Oriented X3, Other (The patient is answering all questions appropriately and correctly.). negative: Altered, Motor sensory deficit - Psychiatric Psychiatric exam: negative: Anxious - Skin Skin exam: negative: Rash Course Vital Signs 05/03/18 11:08 Temperature 97.6 F Pulse Rate 83 Respiratory 18 Rate Blood Pressure 145/84 Pulse Ox 100 - Reevaluation(s) Reevaluation #1: I did discuss the issues with the patient again. She denies any new SOB or ALEX. I did offer to order lab work and a CXR on the patient but she did decline. She still feels like her tongue is thick and it is better after drinking water. I do not see any evidence of any allergix rxn at this time due to the fact I do not see any facial swelling, tongue edema, cough, rash or itching. I also did discuss the issues with the patient's Hospice doctor who is Dr. Jakob Jones and also her home visiting nurse Freddy and relayed that I see no evidence of any allergic rxn. That said we will bump the patient's Prednisone and will give her 60 mg now. She is to cut back on the oral Morphine and Ativan and follow up with Hospice as directed. 05/03/18 12:16 Reevaluation #2: The patient is doing a lot better at this time. She denies any trouble swallowing and is having no increased SOB. Her tongue is feeling better now after drinking water. I again examined her tongue and see no evidence of swelling. I again offered to order lab work and xrays on the patient but she again is refusing. We will have the patient take a double dose of Prednisone for the next 2 days and then back to her normal dose. 05/03/18 12:29 Disposition Disposition: Discharge Clinical Impression: Pulmonary fibrosis, unspecified Disposition: Home, Self-Care Condition: (2) Stable Instructions: Cold Symptoms (ED) Additional Instructions: Please double your Prednisone for 2 days then back to your normal dose. Please decrease your dose of oral Morphine. Please see your Hospice doctor later this week for recheck and return to the ER for any worsening symptoms. Forms: Patient Portal Access Time of Disposition: 12:32 Quality - Quality Measures Quality Measures: N/A - Blood Pressure Screening View Details: Yes Does Patient Have Any of the Following: No Blood Pressure Classification: Pre-Hypertensive BP Reading Systolic Measurement: 145 Diastolic Measurement: 84 Screening for High Blood Pressure: < Pre-Hypertensive BP, F/U Documented > [ [id number]] Pre-Hypertensive Follow-up Interventions: Referral to alternative/primary care provider.
[2018-05-03] MEDS ORDERED: PREDNISONE 20 MG TAB PO ONE (12:13)
== END 2018-05-03 13:09 | disposition home or self-care (01) ==
LOC: ER 11:07
DX: J84.10 Pulmonary fibrosis, unspecified (principal); R26.81 Unsteadiness on feet; Z99.81 Dependence on supplemental oxygen; Z87.891 Personal history of nicotine dependence
CPT/HCPCS: 99283 ×2; J7512